=== PATIENT | male | born 1995 | race Caucasian/White ===

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

== ENCOUNTER 2017-02-22 22:23 | Emergency (ER) | payer OTHER ==
--- NOTE | ~2017-02-22 | US115 ---
[facility] A Service of [facility] RADIOLOGY TEXT RESULTS PATIENT: SHIRIN SERRA LOCATION: SED : [birth year] UNIT #: [id number] AGE: [address]: Reji Badillo MD SEX: M ORDER DR: [id number] [address] [id number] MR#: [id number] Acc #: [id number] NAME: SHIRIN SERRA : 1995 SEX: M STUDY DATE/TIME: 02/23/2017 0:05 UNIT: SED ROOM: STUDY DESCRIPTION: US Scrotum and Contents Attending Physician: Reji Badillo M.D. Ordering Physician: Reji Badillo M.D. Primary Care Physician: Patrizia Montenegro M.D. MEDICAL IMAGING REPORT This report is preliminary unless electronic signature is present. EXAM Scrotal ultrasound with Doppler imaging INDICATION Left-sided testicular pain for 3 days. FINDINGS The scrotal contents were evaluated with tesfaye-scale imaging and color flow Doppler. The right testicle is 3.0 x 2.2 x 4.6 cm and it appears normal and has normal flow. The right epididymis appears normal. The left testicle is 3.1 x 2.3 x 4.1 cm and appears normal and has normal flow. The left epididymis may be minimally thickened and there is minimal fluid around it. IMPRESSION 1. Both testicles appear normal and have normal flow. 2. There may be minimal thickening of the left epididymis and there is minimal fluid around the left epididymis. The right epididymis is normal. Dictated by... Cornelius Case M.D. THIS IS AN ELECTRONICALLY VERIFIED REPORT Cornelius Case M.D. at 02/23/2017 8:21 PM MELINA/cedrick TD: 02/23/2017 14:58 JOB #: [id number] [facility] A Service [facility] RADIOLOGY TEXT RESULTS PATIENT: SHIRIN SERRA LOCATION: SED : [birth year] UNIT #: [id number] AGE: [address]: Reji Badillo MD SEX: M ORDER DR: MEDICAL IMAGING REPORT Page 1 of 1
[2017-02-22 23:51] LABS: URINE SOURCE CLEAN CATCH
[2017-02-22 23:56] LABS: BASOPHIL# 0.1 X10e3 (0-0.3); BASOPHIL% 0.6 % (0-2.5); EOSINOPHIL# 0.1 X10e3 (0-0.7); EOSINOPHIL% 1.1 % (0.0-7.0); HEMATOCRIT 42.2 % (38.0-50.0); HEMOGLOBIN 14.7 gm/dL (13.0-16.0); LYMPHOCYTE# 1.7 X10e3 (1.0-3.5); LYMPHOCYTE% 17.6 % (17.0-45.0); MEAN CELL VOLUME 88.8 FL (83-96); MEAN CORPUSCULAR HEMOGLOBIN 30.9 PG (28-34); MEAN CORPUSCULAR HGB CONC 34.8 g/dL (30-36); MEAN PLATELET VOLUME 8.1 FL (6.5-11.5); MONOCYTE# 0.9 X10e3 (0-1.0); MONOCYTE% 9.1 % (3.0-12.0); NEUTROPHIL# 7.1 X10e3 (1.5-7.1); NEUTROPHIL% 71.6 % (40-75); PLATELET COUNT 157 X10e3 (140-420); RED BLOOD COUNT 4.76 X10e (3.90-5.60); RED CELL DISTRIBUTION WIDTH 13.3 % (11.0-15.5); URINE APPEARANCE HAZY; URINE BLOOD 3+ (NEG); URINE COLOR YELLOW; URINE GLUCOSE NEG (NORM); URINE KETONE 1+ (NEG); URINE NITRATE NEG (NEG); URINE PROTEIN 2+ (NEG); URINE SPECIFIC GRAVITY >=1.030 (1.003-1.035); WHITE BLOOD COUNT 9.9 X10e3 (4.0-10.5)
[2017-02-22 23:57] LABS: DIFF IND NO
[2017-02-23 00:02] LABS: MICRO INDICATED? YES; URINE BILIRUBIN NEG (NEG); URINE LEUKOCYTE ESTERASE 3+ (NEG)
[2017-02-23 00:04] LABS: CULTURE INDICATED? YES; URINE BACTERIA 1+ (NEG); URINE MUCUS PRESENT; URINE RBC 25-50 /[HPF] (0-2); URINE SQUAMOUS EPITHELIAL CELL OCCAS /[HPF]; URINE TRANSITIONAL EPI CELLS OCCAS /[HPF]; URINE WBC INNUM /[HPF] (0-5)
[2017-02-25 20:46] LABS: CHLAMYDIA TRACH Detected (Not Detected); N GONOR Not Detected (Not Detected)
== END 2017-02-23 01:01 | disposition home or self-care (01) ==
LOC: SED 22:23
PROVIDERS: Emergency Medicine
DX: N45.1 Epididymitis (principal); J45.909 Unspecified asthma, uncomplicated; F17.210 Nicotine dependence, cigarettes, uncomplicated; Z90.49 Acquired absence of other specified parts of digestive tract
CPT/HCPCS: 36415; 76870; 81003; 85025; 87086; 87491; 87591; 93976; 96372; 99284; J0696

== ENCOUNTER 2017-04-06 18:29 | Emergency (ER) | payer OTHER ==
[2017-04-06 19:07] LABS: URINE SOURCE CLEAN CATCH
[2017-04-06 19:13] LABS: URINE APPEARANCE CLEAR; URINE BLOOD 1+ (NEG); URINE COLOR YELLOW; URINE GLUCOSE NEG (NORM); URINE KETONE 1+ (NEG); URINE LEUKOCYTE ESTERASE NEG (NEG); URINE NITRATE NEG (NEG); URINE PROTEIN TRACE (NEG); URINE SPECIFIC GRAVITY 1.025 (1.003-1.035)
[2017-04-06 19:20] LABS: CULTURE INDICATED? NO; MICRO INDICATED? YES; URINE BACTERIA NEG (NEG); URINE BILIRUBIN NEG (NEG)
[2017-04-06 19:21] LABS: URINE MUCUS PRESENT; URINE SQUAMOUS EPITHELIAL CELL OCCAS /[HPF]
[2017-04-10 11:44] LABS: CHLAMYDIA TRACH Not Detected (Not Detected); N GONOR Not Detected (Not Detected)
== END 2017-04-06 19:54 | disposition home or self-care (01) ==
LOC: SED 18:29
PROVIDERS: Emergency Medicine; Nurse Practitioner Family
DX: Z20.2 Contact with and (suspected) exposure to infections with a predominantly sexual mode of transmission (principal); F17.210 Nicotine dependence, cigarettes, uncomplicated
CPT/HCPCS: 81003; 87491; 87591; 96372; 99283; J0696